=== PATIENT | male | born 1955 | race Caucasian/White ===

== ENCOUNTER 2021-12-19 12:30 | Emergency (ER) | payer OTHER ==
[2021-12-19] MEDS ORDERED: Boostrix 0.5 ML (Tdap) VIAL ONE (13:46)
[2021-12-19] MEDS ORDERED: Lidocaine 1% (PF) 30 ML VIAL ONE (14:04)
[2021-12-19] MEDS ORDERED: Ondansetron PF 4 MG/2 ML Vial ONE (14:46)
[2021-12-19] MEDS ORDERED: Morphine 4 MG/ML VIAL ONE (14:46)
[2021-12-19] MEDS ORDERED: CEFAZOLIN 1 GM VIAL ONE (15:20)
== END 2021-12-19 17:00 | disposition home or self-care (01) ==
LOC: ERS 12:30
DX: S62.611B Displaced fracture of proximal phalanx of left index finger, initial encounter for open fracture (principal)
CPT/HCPCS: 90471; 90715; 96365; 96375; J0690; J2001; J2270; J2405

== ENCOUNTER 2022-01-30 12:43 | Outpatient (CLI) | payer OTHER | END 2022-01-30 12:44 | disposition home or self-care (01) | LOC: EEG 12:43 | PROVIDERS: ATTEND Nurse Practitioner Family | DX: S06.0X9A Concussion with loss of consciousness of unspecified duration, initial encounter (principal) | CPT/HCPCS: 95816 ==